=== PATIENT | female | born 1960 | race Caucasian/White ===

== ENCOUNTER → 2017-11-04 | Outpatient (CLI) | payer OTHER ==
--- NOTE | 2017-11-04 17:53 | US ---
EXAMINATION TYPE: US pelvic complete DATE OF EXAM: 11/04/2017 COMPARISON: NONE CLINICAL HISTORY: 57 are old female R10.2 Pelvic And Perineal Pain. Pt states pelvic pain x 2-3 weeks , pt not on HRT's, history of ablation TECHNIQUE: Transabdominal (TA) Date of LMP: 8-10 yrs ago FINDINGS: Uterus: Anteverted measuring 10.4 x 4.4 x 4.9 cm. There are 2 focal fibroids that appear primarily s ubserosal at the uterine fundus measuring 2.6 cm (projecting towards the right and partially exophyti c) and 1.0 cm (projecting anteriorly). Endometrial Stripe: 6.6 mm, slightly prominent given history of previous endometrial ablation. No abn ormal fluid accumulation is seen along the uterine cavity. Right Ovary: 2.4 x 1.8 x 2.8 cm Left Ovary: 2.4 x 1.9 x 2.1 cm No evident adnexal abnormality or cul-de-sac free fluid. IMPRESSION: 1. 2 subserosal fibroids at the uterine fundus, larger measuring 2.6 cm projects towards the right an d is partially exophytic. 2. The endometrial stripe measures 6.6 mm which may be slightly prominent given history of prior endo metrial ablation. Clinically correlate.
== END | disposition home or self-care (01) ==
LOC: RADUSWWP 15:04
PROVIDERS: ATTEND Family Medicine
DX: D25.2 Subserosal leiomyoma of uterus (principal); R10.84 Generalized abdominal pain
CPT/HCPCS: 76856

== ENCOUNTER → 2017-12-17 | Outpatient (CLI) | payer OTHER ==
[2017-12-17 16:05] LABS: Blood Urea Nitrogen 13 mg/dL (7-17)
--- NOTE | 2017-12-17 17:28 | CT ---
EXAMINATION TYPE: CT abdomen pelvis w con DATE OF EXAM: 12/17/2017 COMPARISON: NONE HISTORY: Ventral hernia. CT DLP: 3338.6 mGycm Automated exposure control for dose reduction was used. TECHNIQUE: Helical acquisition of images was performed from the lung bases through the pelvis. CONTRAST: Performed with Oral Contrast and with IV Contrast, patient injected with 100 mL of Isovue M300. FINDINGS: Lung bases are clear of consolidation. There is no pleural effusion. There is no pericardial effusion . There is a bariatric gastric sleeve at the gastric fundus. Liver spleen pancreas appear normal. There are clips from cholecystectomy. Bile ducts are not dilated . There is no adrenal mass. Kidneys show satisfactory contrast opacification. There is no hydronephrosi s. Bladder distends smoothly. There is no evidence of a pelvic mass. I see no intestinal wall thicken ing. There are no dilated loops. There is no ascites. There is no sign of free air. Appendix appears normal. There is a 4 mm calculus in the posterior right kidney. I see no bony destructive process. Uterus is anteverted. There is no sign of a pelvic mass. IMPRESSION: NONOBSTRUCTING SMALL RIGHT RENAL CALCULUS. PREVIOUS BARIATRIC SURGERY. NORMAL APPENDIX. NO EVIDENCE OF A VENTRAL HERNIA. NO SIGN OF AN ACUTE ABDOMEN AND PELVIS.
== END | disposition home or self-care (01) ==
LOC: RADCTMAIN 15:04
PROVIDERS: ATTEND Surgery Plastic and Reconstructive Surgery
DX: N20.0 Calculus of kidney (principal); Z98.84 Bariatric surgery status
CPT/HCPCS: 82565; 84520; 74177; 36415; Q9967

== ENCOUNTER → 2017-12-27 | Outpatient (CLI) | payer OTHER ==
--- NOTE | 2017-12-27 11:34 | XR ---
EXAMINATION TYPE: XR chest 2V DATE OF EXAM: 12/27/2017 COMPARISON: 02/24/2014 TECHNIQUE: PA and lateral views submitted. HISTORY: Cough, bronchitis FINDINGS: The lungs are clear and there is no pneumothorax, pleural effusion, or focal pneumonia. Arthropathy of the AC joints. Hypertrophic and degenerative change of the spine. IMPRESSION: 1. No acute process.
== END | disposition home or self-care (01) ==
LOC: RADXRMAIN 10:58
PROVIDERS: ATTEND Physician Assistant
DX: R05 Cough (principal)
CPT/HCPCS: 71046

== ENCOUNTER 2018-02-14 10:11 | Day surgery (SDC) | payer OTHER ==
[2018-02-12 14:14] VITALS: BMI 49.6
--- NOTE | 2018-02-14 07:08 | P.GSHP ---
History of Present Illness H&P Date: 02/14/18 CHIEF COMPLAINT: GERD HISTORY OF PRESENT ILLNESS: The patient is a 57-year-old female who presents reports gastroesophageal reflux disease. Upper endoscopy was offered for further evaluation and management. PAST MEDICAL HISTORY: Please see list. PAST SURGICAL HISTORY: Please see list. MEDICATIONS: Please see list. ALLERGIES: Please see list. SOCIAL HISTORY: No illicit drug use FAMILY HISTORY: No reports of Crohn disease or ulcerative colitis. REVIEW OF ORGAN SYSTEMS: CONSTITUTIONAL: No reports of fevers or chills. GI: Denies any blood in stools or constipation. PHYSICAL EXAM: VITAL SIGNS: Stable GENERAL: Well-developed and pleasant in no acute distress. HEENT: No scleral icterus. Extraocular movements grossly intact. Moist buccal mucosa. NECK: Supple without lymphadenopathy. CHEST: Unlabored respirations. Equal bilateral excursions. CARDIOVASCULAR: Regular rate and rhythm. Distal 2+ pulses. ABDOMEN: Soft, nondistended. MUSCULOSKELETAL: No clubbing, cyanosis, or edema. ASSESSMENT: 1. Gastroesophageal reflux disease PLAN: 1. Recommend proceeding with an upper endoscopy Past Medical History Past Medical History: Diabetes Mellitus, Hypertension, Pneumonia Additional Past Medical History / Comment(s): bronchitis,steroids December 2017, UTIs,fatty liver History of Any Multi-Drug Resistant Organisms: None Reported Past Surgical History: Bariatric Surgery, Cholecystectomy, Hernia Repair, Uterine Ablation Additional Past Surgical History / Comment(s): lap band,antonio inguinal hernia repair Past Anesthesia/Blood Transfusion Reactions: Previous Problems w/ Anesthesia, Postoperative Nausea & Vomiting (PONV) Additional Past Anesthesia/Blood Transfusion Reaction / Comment(s): hx stomach ache and headaches with anesthesia Smoking Status: Never smoker - Past Family History Mother Family Medical History: No Reported History Medications and Allergies Home Medications Medication Instructions Recorded Confirmed Type ALPRAZolam [Xanax] 0.25 mg PO BID PRN 02/12/18 02/12/18 History Insulin Glargine,Hum.rec.anlog 70 unit SQ HS 02/12/18 02/12/18 History [Basaglar Kwikpen U-100] Insulin Lispro [humaLOG Kwikpen] 35 unit SQ TID-W/MEALS 02/12/18 02/12/18 History Losartan Potassium 50 mg PO QAM 02/12/18 02/12/18 History metFORMIN HCL [metFORMIN HCL ER] 1,000 mg PO BID 02/12/18 02/12/18 History traMADol HCL [Ultram] 50 mg PO Q6HR PRN 02/12/18 02/12/18 History Allergies Allergy/AdvReac Type Severity Reaction Status Date / Time ciprofloxacin [From Cipro] Allergy Rash/Hives Verified 02/12/18 14:03 codeine Allergy throat Verified 02/12/18 14:03 swelling Iodinated Contrast- Oral and Allergy Unknown Verified 02/12/18 14:10 IV Dye latex Allergy Rash/Hives Verified 02/12/18 14:03 Penicillins Allergy Rash/Hives Verified 02/12/18 14:03 pain medications Allergy throat Uncoded 02/12/18 14:03 swelling
[~2018-02-14 10:11] MED LIST: LACTATED RINGERS 1,000 ML IV SCH
[2018-02-14 10:58] VITALS: TEMP 96.7
[2018-02-14] MEDS ORDERED: ONDANSETRON 4 MG/2 ML VIAL IVP ONE (10:59)
[2018-02-14] MEDS ORDERED: LIDOCAINE 1% 20 ML VIAL (10MG/ML) FOR IV START INTRADERMA ONE (10:59)
[2018-02-14] MEDS ORDERED: SCOPOLAMINE 1.5MG/72HR PATCH TRANSDERM ONE (11:00)
[2018-02-14 11:02] LABS: Glucose,Whole Blood 133 mg/dL (75-99)
[2018-02-14] MEDS ORDERED: LIDOCAINE 1% INJ 10MG/ML (20 ML MDV) ONE (12:19)
[2018-02-14] MEDS ORDERED: PROPOFOL 10 MG/ML 20 ML VIAL IV ONE (12:19)
--- NOTE | 2018-02-14 12:37 | P.PCN ---
Date of Procedure: 02/14/18 Description of Procedure: PREOPERATIVE DIAGNOSIS: Gastroesophageal reflux disease. Morbid obesity. POSTOPERATIVE DIAGNOSIS: Morbid obesity. Gastritis. Gastroesophageal reflux disease. Diaphragmatic hiatal hernia without obstruction. OPERATION: Esophagogastroduodenoscopy with biopsies along antrum. SURGEON: Pennie Burton MD ANESTHESIA: MAC. INDICATIONS: The patient is a 57-year-old female who presents with a history of reflux disease. Benefits and risks of the procedure were described. Informed consent was obtained. DESCRIPTION: The patient was brought into the endoscopy suite and laid in the left lateral decubitus position. An Olympus gastroscope was passed along the posterior oropharynx down to the distal esophagus where the squamocolumnar junction was encountered at 39 cm from the incisors. The stomach was entered and no bile reflux was found. Additional findings are listed below. Biopsies with cold forceps were obtained of the antrum. The first through third portion of the duodenum was examined and unremarkable. Retroflexion of the scope confirmed Hill grade 3 lower esophageal valve. The squamocolumnar junction demostrated LA grade A erosive esophagitis. The stomach was desufflated. The patient tolerated the procedure well. FINDINGS: Squamocolumnar junction 39 cm from the incisors. Diaphragmatic hiatus at 40 cm. Hiatal hernia 1 cm. Hill grade 3 lower esophageal valve. LA grade A erosive esophagitis. Chronic gastritis. No active duodenitis. RECOMMENDATIONS: Further recommendations pending results of pathology report. Upper endoscopy as needed. Plan - Discharge Summary New Discharge Prescriptions: No Action Insulin Glargine,Hum.rec.anlog [Basaglar Kwikpen U-100] 70 unit SQ HS metFORMIN HCL [metFORMIN HCL ER] 1,000 mg PO BID ALPRAZolam [Xanax] 0.25 mg PO BID PRN PRN Reason: Pain traMADol HCL [Ultram] 50 mg PO Q6HR PRN PRN Reason: Pain Losartan Potassium 50 mg PO QAM Insulin Lispro [humaLOG Kwikpen] 35 unit SQ TID-W/MEALS Discharge Medication List ALPRAZolam [Xanax] 0.25 mg PO BID PRN 02/12/18 [History] Insulin Glargine,Hum.rec.anlog [Basaglar Kwikpen U-100] 70 unit SQ HS 02/12/18 [ History] Insulin Lispro [humaLOG Kwikpen] 35 unit SQ TID-W/MEALS 02/12/18 [History] Losartan Potassium 50 mg PO QAM 02/12/18 [History] metFORMIN HCL [metFORMIN HCL ER] 1,000 mg PO BID 02/12/18 [History] traMADol HCL [Ultram] 50 mg PO Q6HR PRN 02/12/18 [History]
[2018-02-14 12:54] VITALS: BP 131/75; PULSE 68; RESP 18
== END 2018-02-14 13:12 | disposition home or self-care (01) ==
LOC: ORWHC2ENDO 10:11
PROVIDERS: ATTEND Surgery Plastic and Reconstructive Surgery
DX: K29.50 Unspecified chronic gastritis without bleeding (principal); E11.9 Type 2 diabetes mellitus without complications; I10 Essential (primary) hypertension; K21.9 Gastro-esophageal reflux disease without esophagitis; K44.9 Diaphragmatic hernia without obstruction or gangrene; E66.01 Morbid (severe) obesity due to excess calories; K22.10 Ulcer of esophagus without bleeding; Z87.01 Personal history of pneumonia (recurrent); Z90.49 Acquired absence of other specified parts of digestive tract; Z79.4 Long term (current) use of insulin; Z88.1 Allergy status to other antibiotic agents; Z88.5 Allergy status to narcotic agent; Z91.040 Latex allergy status; Z88.0 Allergy status to penicillin; Z91.041 Radiographic dye allergy status; Z68.42 Body mass index [BMI] 45.0-49.9, adult; Z79.899 Other long term (current) drug therapy; Z79.891 Long term (current) use of opiate analgesic
CPT/HCPCS: 88305; 43239; J2405; J2001; J2704

== ENCOUNTER 2018-05-03 07:24 | Observation (INO) | payer OTHER ==
[2018-05-03] MEDS ORDERED: ONDANSETRON 4 MG/2 ML VIAL IVP STA (07:52)
[2018-05-03] MEDS ORDERED: SODIUM CHLORIDE 0.9% 500 ML IV STA (07:53)
[2018-05-03] MEDS ORDERED: MORPHINE SULFATE 2 MG/ML SYRINGE IVP STA (07:55)
[2018-05-03] MEDS ORDERED: KETOROLAC 60 MG/2 ML VIAL IVP STA (07:56)
[2018-05-03 08:03] LABS: Basophils % (A) 1 %; Eosinophils # (A) 0.1 k/uL (0-0.7); Eosinophils % (A) 2 %; HCT 45.2 % (34.0-46.0); HGB 15.1 gm/dL (11.4-16.0); Lymphocytes # (A) 1.7 k/uL (1.0-4.8); Lymphocytes % (A) 26 %; MCH 26.9 pg (25.0-35.0); MCHC 33.3 g/dL (31.0-37.0); MCV 80.7 fL (80.0-100.0); Mean Platelet Volume 8.3; Monocytes # (A) 0.3 k/uL (0-1.0); Monocytes % (A) 4 %; Neutrophils # (A) 4.4 k/uL (1.3-7.7); Neutrophils % (A) 67 %; Platelet Count 167 k/uL (150-450); RDW 13.5 % (11.5-15.5); WBC 6.6 k/uL (3.8-10.6)
--- NOTE | 2018-05-03 08:05 | ED ---
General Adult HPI - General Chief complaint: Nausea/Vomiting/Diarrhea Stated complaint: vomiting Time Seen by Provider: 05/03/18 07:30 Source: patient, RN notes reviewed Mode of arrival: ambulatory Limitations: no limitations - History of Present Illness Initial comments: This is a 57-year-old female who presents emergency Department complaining of abdominal pain which started at work. Patient states she woke up and felt fine went to work started having some right abdominal pain and then began vomiting. Patient states she continues to be nauseous and continues to have right sided abdominal pain. Patient states the pain is more in the lower right abdomen but it seems to be in the right upper abdomen as well. Patient denies any fever or chills. Patient denies any diarrhea. Patient denies chest pain difficulty breathing or shortness of breath. Patient states she is a diabetic. Patient denies any lightheadedness or dizziness. Patient denies any numbness or weakness. Patient denies any recent injury or trauma - Related Data Home Medications Medication Instructions Recorded Confirmed ALPRAZolam [Xanax] 0.25 mg PO BID PRN 02/12/18 02/14/18 Insulin Glargine,Hum.rec.anlog 70 unit SQ HS 02/12/18 02/14/18 [Basaglar Kwikpen U-100] Insulin Lispro [humaLOG Kwikpen] 35 unit SQ TID-W/MEALS 02/12/18 02/14/18 Losartan Potassium 50 mg PO QAM 02/12/18 02/14/18 metFORMIN HCL [metFORMIN HCL ER] 1,000 mg PO BID 02/12/18 02/14/18 traMADol HCL [Ultram] 50 mg PO Q6HR PRN 02/12/18 02/14/18 Previous Rx's Medication Instructions Recorded Omeprazole 40 mg PO DAILY #14 capsule. 02/14/18 Allergies Allergy/AdvReac Type Severity Reaction Status Date / Time ciprofloxacin [From Cipro] Allergy Rash/Hives Verified 05/03/18 07:30 codeine Allergy throat Verified 05/03/18 07:30 swelling Iodinated Contrast- Oral and Allergy Unknown Verified 05/03/18 07:30 IV Dye latex Allergy Rash/Hives Verified 05/03/18 07:30 Penicillins Allergy Rash/Hives Verified 05/03/18 07:30 pain medications Allergy throat Uncoded 05/03/18 07:30 swelling Review of Systems ROS Statement: Those systems with pertinent positive or pertinent negative responses have been documented in the HPI. ROS Other: All systems not noted in ROS Statement are negative. Past Medical History Past Medical History: Diabetes Mellitus, Hypertension, Pneumonia Additional Past Medical History / Comment(s): bronchitis,steroids December 2017, UTIs,fatty liver History of Any Multi-Drug Resistant Organisms: None Reported Past Surgical History: Bariatric Surgery, Cholecystectomy, Hernia Repair, Uterine Ablation Additional Past Surgical History / Comment(s): lap band,antonio inguinal hernia repair Past Anesthesia/Blood Transfusion Reactions: Previous Problems w/ Anesthesia, Postoperative Nausea & Vomiting (PONV) Additional Past Anesthesia/Blood Transfusion Reaction / Comment(s): hx stomach ache and headaches with anesthesia Past Psychological History: Anxiety, Depression Smoking Status: Never smoker Past Alcohol Use History: None Reported Past Drug Use History: None Reported - Past Family History Mother Family Medical History: No Reported History General Exam - General Exam Comments Initial Comments: GENERAL: Patient is well-developed and well-nourished. Patient is nontoxic and well- hydrated and is in mild distress. ENT: Neck is soft and supple. No significant lymphadenopathy is noted. Oropharynx is clear. Moist mucous membranes. Neck has full range of motion without eliciting any pain. EYES: The sclera were anicteric and conjunctiva were pink and moist. Extraocular movements were intact and pupils were equal round and reactive to light. Eyelids were unremarkable. PULMONARY: Unlabored respirations. Good breath sounds bilaterally. No audible rales rhonchi or wheezing was noted. CARDIOVASCULAR: There is a regular rate and rhythm without any murmurs gallops or rubs. ABDOMEN: Patient has tenderness right upper and right lower quadrant. No rebound or guarding SKIN: Skin is clear with no lesions or rashes and otherwise unremarkable. NEUROLOGIC: Patient is alert and oriented x3. Cranial nerves II through XII are grossly intact. Motor and sensory are also intact. Normal speech, volume and content. Symmetrical smile. MUSCULOSKELETAL: Normal extremities with adequate strength and full range of motion. No lower extremity swelling or edema. No calf tenderness. LYMPHATICS: No significant lymphadenopathy is noted PSYCHIATRIC: Normal psychiatric evaluation. Limitations: no limitations Course Vital Signs 05/03/18 07:28 Temperature 97.7 F Pulse Rate 99 Respiratory 20 Rate Blood Pressure 175/103 O2 Sat by Pulse 99 Oximetry Medical Decision Making - Medical Decision Making I went back into reevaluate the patient and gave the patient her results of labs and CAT scan. 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 Patient did not feel comfortable: Home and she was requesting to stay and see Dr. Dale. I spoke with Dr. Barcenas he agreed to admit the patient admitted the patient I wrote admitting orders. - Lab Data Result diagrams: 05/03/18 07:45 05/03/18 07:45 Lab Results 05/03/18 05/03/18 05/03/18 Range/Units 07:45 07:45 07:55 WBC 6.6 (3.8-10.6) k/uL RBC 5.60 H (3.80-5.40) m/uL Hgb 15.1 (11.4-16.0) gm/dL Hct 45.2 (34.0-46.0) % MCV 80.7 (80.0-100.0) fL MCH 26.9 (25.0-35.0) pg MCHC 33.3 (31.0-37.0) g/dL RDW 13.5 (11.5-15.5) % Plt Count 167 (150-450) k/uL Neutrophils % 67 % Lymphocytes % 26 % Monocytes % 4 % Eosinophils % 2 % Basophils % 1 % Neutrophils # 4.4 (1.3-7.7) k/uL Lymphocytes # 1.7 (1.0-4.8) k/uL Monocytes # 0.3 (0-1.0) k/uL Eosinophils # 0.1 (0-0.7) k/uL Basophils # 0.0 (0-0.2) k/uL Sodium 140 (137-145) mmol/L Potassium 4.1 (3.5-5.1) mmol/L Chloride 103 (98-107) mmol/L Carbon Dioxide 29 (22-30) mmol/L Anion Gap 8 mmol/L BUN 14 (7-17) mg/dL Creatinine 0.73 (0.52-1.04) mg/dL Est GFR (CKD-EPI)AfAm >90 (>60 ml/min/1.73 sqM) Est GFR (CKD-EPI)NonAf >90 (>60 ml/min/1.73 sqM) Glucose 126 H (74-99) mg/dL Calcium 9.4 (8.4-10.2) mg/dL Total Bilirubin 0.3 (0.2-1.3) mg/dL AST 30 (14-36) U/L ALT 41 (9-52) U/L Alkaline Phosphatase 135 H (38-126) U/L Total Protein 7.1 (6.3-8.2) g/dL Albumin 4.1 (3.5-5.0) g/dL Amylase 54 (30-110) U/L Lipase 318 H (23-300) U/L Urine Color Yellow Urine Appearance Cloudy H (Clear) Urine pH 5.0 (5.0-8.0) Ur Specific [place] 1.026 (1.001-1.035) Urine Protein 1+ H (Negative) Urine Glucose (UA) Negative (Negative) Urine Ketones Negative (Negative) Urine Blood Negative (Negative) Urine Nitrite Negative (Negative) Urine Bilirubin Negative (Negative) Urine Urobilinogen <2.0 (<2.0) mg/dL Ur Leukocyte Esterase Negative (Negative) Urine RBC 1 (0-5) /hpf Urine WBC 4 (0-5) /hpf Ur Squamous Epith Cells 6 H (0-4) /hpf Urine Bacteria Rare H (None) /hpf Urine Mucus Few H (None) /hpf Disposition Clinical Impression: Abdominal pain, Acute vomiting Disposition: ADMITTED IP TO THIS HOSP Referrals: Kenny Coronado MD [Primary Care Provider] - 1-2 days Time of Disposition: 09:07
[2018-05-03 08:15] LABS: ALT 41 U/L (9-52); AST 30 U/L (14-36); Albumin 4.1 g/dL (3.5-5.0); Alkaline Phosphatase 135 U/L (38-126); Amylase 54 U/L (30-110); Anion Gap 8 mmol/L; Blood Urea Nitrogen 14 mg/dL (7-17); Calcium 9.4 mg/dL (8.4-10.2); Carbon Dioxide 29 mmol/L (22-30); Chloride 103 mmol/L (98-107); Glucose 126 mg/dL (74-99); Lipase 318 U/L (23-300); Potassium 4.1 mmol/L (3.5-5.1); Sodium 140 mmol/L (137-145); Total Bilirubin 0.3 mg/dL (0.2-1.3); Total Protein 7.1 g/dL (6.3-8.2)
[2018-05-03 08:17] LABS: Appearance,Urine Cloudy (Clear); Bacteria,Urine Rare /hpf; Bilirubin,Urine Negative (Negative); Blood,Urine Negative (Negative); Color,Urine Yellow; Glucose,Urine (UA) Negative (Negative); Ketones,Urine Negative (Negative); Leukocyte Esterase,Urine Negative (Negative); Mucus,Urine Few /hpf; Nitrite,Urine Negative (Negative); Protein,Urine 1+ (Negative); RBC,Urine 1 /hpf (0-5); Specific Gravity,Urine 1.026 (1.001-1.035); Squamous Epithelial Cell,Urine 6 /hpf (0-4); Urobilinogen,Urine <2.0 mg/dL (<2.0); WBC,Urine 4 /hpf (0-5)
--- NOTE | 2018-05-03 08:56 | CT ---
EXAMINATION TYPE: CT abdomen pelvis wo con DATE OF EXAM: 05/03/2018 COMPARISON: Previous study dated 12/17/2017. HISTORY: RLQ pain, nausea and vomiting CT DLP: 1315.4 mGycm Automated exposure control for dose reduction was used. FINDINGS: Visualized portions of the lungs are clear. There is no pleural or pericardial fluid. The h eart is not enlarged. Within the abdomen, there is a lap band in place. The gallbladder is been removed. The liver is mildly prominent measuring 18 cm. The spleen is unremar kable. Both adrenal glands are normal. There is a 5 mm calculus in one of the lower pole calyces of the right kidney. Left kidney is unremar kable. Limited views of the pancreas are unremarkable. There is no significant retroperitoneal, iliac or inguinal adenopathy. The uterus and ovaries are unremarkable. The bladder is not distended. There is no significant diverticular change and there is no radiographic evidence of diverticulitis. The appendix is unremarkable. Small bowel loops are normal in caliber. There is no free fluid and no free air identified. There is hypertrophic spondylosis and facet arthropathy within the lumbar spine. IMPRESSION: 1. NONOBSTRUCTING CALCULUS IN THE LOWER POLE OF THE RIGHT KIDNEY. 2. NO ACUTE INFLAMMATORY ABNORMALITY. 3. NORMAL APPENDIX. 4. POSTOPERATIVE CHANGE. 5. DEGENERATIVE CHANGE WITHIN THE SPINE.
[2018-05-03] MEDS ORDERED: SODIUM CHLORIDE 0.9% 1,000 ML IV ONE (09:07)
[2018-05-03] MEDS ORDERED: hydrALAZINE HCL 20 MG/ML 1 ML VIAL IVP STA (09:27)
[2018-05-03] MEDS ORDERED: LORazepam 2 MG/ML INJ IV STA (09:29)
[2018-05-03 11:52] LABS: Glucose,Whole Blood 67 mg/dL (75-99)
[2018-05-03] MEDS ORDERED: DEXTROSE 50%-WATER 50 ML SYRINGE IVP ONE (11:53)
[2018-05-03 12:07] LABS: Glucose,Whole Blood 200 mg/dL (75-99)
[2018-05-03] MEDS: INSULIN ASPART 100 UNIT/ML 1 ML 10 ML VIAL SQ SCH ×3 (12:44→21:08)
[2018-05-03 13:36] VITALS: BMI 49.6
[2018-05-03] MEDS: ONDANSETRON 4 MG/2 ML VIAL IVP PRN ×2 (14:49→20:23)
--- NOTE | 2018-05-03 14:50 | P.HPIM ---
History of Present Illness H&P Date: 05/03/18 Chief Complaint: Intractable abdominal pain This is a 57-year-old female who presents emergency Department complaining of abdominal pain which started at work. Patient states she woke up and felt fine went to work started having some right abdominal pain and then began vomiting. Patient states she continues to be nauseous and continues to have right sided abdominal pain. Patient states the pain is more in the lower right abdomen but it seems to be in the right upper abdomen as well. Patient denies any fever or chills. Patient denies any diarrhea. Patient denies chest pain difficulty breathing or shortness of breath. Patient states she is a diabetic. Patient denies any lightheadedness or dizziness. Patient denies any numbness or weakness. Patient denies any recent injury or trauma Patient had CT of her abdomen done in ED which did not demonstrate etiology of abdominal pain; patient continued to have intractable pain with nausea and vomiting; she is admitted for surgical evaluation and further testing Review of Systems Constitutional: Reports anorexia, Denies chills, Denies fever Eyes: denies as per HPI Ears, nose, mouth and throat: Denies headache Cardiovascular: Denies chest pain, Denies dyspnea on exertion Respiratory: Reports cough, Denies cough with sputum Gastrointestinal: Reports abdominal pain, Reports diarrhea, Reports nausea, Reports vomiting Genitourinary: Denies dysuria, Denies hematuria Neurological: Denies confusion, Denies headaches Endocrine: Denies excessive sweating, Denies flushing, Denies heat intolerance Hematologic/Lymphatic: Denies easy bleeding, Denies easy bruising, Denies lymphadenopathy Past Medical History Past Medical History: Diabetes Mellitus, Hypertension, Pneumonia Additional Past Medical History / Comment(s): bronchitis,steroids December 2017, UTIs,fatty liver History of Any Multi-Drug Resistant Organisms: None Reported Past Surgical History: Bariatric Surgery, Cholecystectomy, Hernia Repair, Uterine Ablation Additional Past Surgical History / Comment(s): lap band,antonio inguinal hernia repair Past Anesthesia/Blood Transfusion Reactions: Previous Problems w/ Anesthesia, Postoperative Nausea & Vomiting (PONV) Additional Past Anesthesia/Blood Transfusion Reaction / Comment(s): hx stomach ache and headaches with anesthesia Past Psychological History: Anxiety, Depression Smoking Status: Never smoker Past Alcohol Use History: None Reported Past Drug Use History: None Reported - Past Family History Mother Family Medical History: No Reported History Medications and Allergies Home Medications Medication Instructions Recorded Confirmed Type Insulin Glargine,Hum.rec.anlog 70 unit SQ HS 02/12/18 05/03/18 History [Basaglar Kwikpen U-100] Insulin Lispro [humaLOG Kwikpen] 35 unit SQ TID-W/MEALS 02/12/18 05/03/18 History Losartan Potassium 50 mg PO QAM 02/12/18 05/03/18 History metFORMIN HCL [metFORMIN HCL ER] 1,000 mg PO BID 02/12/18 05/03/18 History Dulaglutide [Trulicity] 0.75 mg SQ SA 05/03/18 05/03/18 History Allergies Allergy/AdvReac Type Severity Reaction Status Date / Time ciprofloxacin [From Cipro] Allergy Rash/Hives Verified 05/03/18 10:30 codeine Allergy throat Verified 05/03/18 10:30 swelling Iodinated Contrast- Oral and Allergy Unknown Verified 05/03/18 10:30 IV Dye latex Allergy Rash/Hives Verified 05/03/18 10:30 Penicillins Allergy Rash/Hives Verified 05/03/18 10:30 pain medications Allergy throat Uncoded 05/03/18 07:30 swelling Physical Exam Vitals: Vital Signs Temp Pulse Resp BP Pulse Ox 05/03/18 10:10 72 16 139/69 96 05/03/18 09:26 98 16 200/92 05/03/18 07:28 97.7 F 99 20 175/103 99 Intake and Output 05/02/18 05/03/18 05/03/18 22:59 06:59 14:59 Other: Weight 117.934 kg - Constitutional General appearance: Present: average body habitus, cooperative, no acute distress - EENT Eyes: Present: anicteric sclerae, EOMI, PERRLA, normal appearance ENT: Present: hearing grossly normal, normal oropharynx Ears: bilateral: normal - Neck Neck: Present: normal ROM. Absent: lymphadenopathy, rigidity, thyromegaly Carotids: negative: bruit present Thyroid: bilateral: normal size, negative: enlarged, nodule - Respiratory Respiratory: bilateral: CTA, negative: rales, rhonchi, wheezing - Cardiovascular Rhythm: regular Heart sounds: normal: S1, S2 Abnormal Heart Sounds: Absent: systolic murmur, diastolic murmur - Gastrointestinal General gastrointestinal: Present right upper and lower quadrant tenderness; no guarding or rigidity - Genitourinary Genitourinary Comment(s): deferred - Integumentary Integumentary: Present: normal turgor. Absent: jaundiced, rash, ulcer - Neurologic Neurologic: Present: CNII-XII intact. Absent: focal deficits - Musculoskeletal Musculoskeletal: Present: gait normal, strength equal bilaterally - Psychiatric Psychiatric: Present: A&O x's 3, appropriate affect, intact judgment & insight Results CBC & Chem 7: 05/03/18 07:45 05/03/18 07:45 Labs: Abnormal Lab Results - Last 24 Hours (Table) 05/03/18 05/03/18 05/03/18 Range/Units 07:45 07:45 07:55 RBC 5.60 H (3.80-5.40) m/uL Glucose 126 H (74-99) mg/dL Alkaline Phosphatase 135 H (38-126) U/L Lipase 318 H (23-300) U/L Urine Appearance Cloudy H (Clear) Urine Protein 1+ H (Negative) Ur Squamous Epith Cells 6 H (0-4) /hpf Urine Bacteria Rare H (None) /hpf Urine Mucus Few H (None) /hpf Assessment and Plan Assessment: 1. Intractable nausea and vomiting - Possible gastroenteritis; we will add Protonix 40 mg IV daily - Symptomatic treatment with Zofran 4 mg IV every 6 hours when necessary 2. Intractable abdominal pain rule out acute abdomen - Patient remains nothing by mouth and is admitted for surgical evaluation and further recommendations - Pain controlled with IV morphine 4 mg every 4 hours when necessary 3. Uncontrolled hypertension - We will restart patient on home dose of losartan 50 mg daily and monitor blood pressure closely -We will add IV hydralazine when necessary for systolic blood pressure greater than 160 if blood pressure remains elevated despite using home medications 4. Diabetes mellitus type 1 - We will monitor Accu-Cheks with insulin sliding scale closely 5. Hypertension; as above DVT prophylaxis; SCDs CODE STATUS; full code Time with Patient: Less than 30
[2018-05-03] MEDS ORDERED: MORPHINE SULFATE/PF 10MG/10ML VL IVP PRN (14:51)
[2018-05-03] MEDS: KETOROLAC 30 MG/ML 1 ML VIAL IVP PRN ×2 (15:26→20:23)
[2018-05-03 17:12] LABS: Glucose,Whole Blood 78 mg/dL (75-99)
[2018-05-03] MEDS ORDERED: KETOROLAC 30 MG/ML 1 ML VIAL IM SCH (18:00)
[2018-05-03 19:21] LABS: Hemoglobin A1C 7.8 % (4.0-6.0)
[2018-05-03 20:57] LABS: Glucose,Whole Blood 76 mg/dL (75-99)
[2018-05-04] MEDS: KETOROLAC 30 MG/ML 1 ML VIAL IVP PRN ×4 (02:31→20:19)
[2018-05-04 02:33] LABS: Glucose,Whole Blood 73 mg/dL (75-99)
[2018-05-04] MEDS: ONDANSETRON 4 MG/2 ML VIAL IVP PRN ×4 (02:35→20:19)
[2018-05-04 07:08] LABS: Glucose,Whole Blood 88 mg/dL (75-99)
[2018-05-04] MEDS: INSULIN ASPART 100 UNIT/ML 1 ML 10 ML VIAL SQ SCH ×4 (08:15→21:54)
[2018-05-04] MEDS: LOSARTAN 50 MG TAB PO SCH (08:26)
[2018-05-04] MEDS: PANTOPRAZOLE 40 MG/10 ML VIAL IVP SCH (08:26)
[2018-05-04 08:51] LABS: Basophils % (A) 1 %; Eosinophils # (A) 0.2 k/uL (0-0.7); Eosinophils % (A) 3 %; HCT 40.8 % (34.0-46.0); HGB 13.7 gm/dL (11.4-16.0); Lymphocytes # (A) 1.6 k/uL (1.0-4.8); Lymphocytes % (A) 33 %; MCH 27.1 pg (25.0-35.0); MCHC 33.5 g/dL (31.0-37.0); MCV 80.8 fL (80.0-100.0); Mean Platelet Volume 8.1; Monocytes # (A) 0.2 k/uL (0-1.0); Monocytes % (A) 4 %; Neutrophils # (A) 2.8 k/uL (1.3-7.7); Neutrophils % (A) 58 %; Platelet Count 131 k/uL (150-450); RBC 5.05 m/uL (3.80-5.40); RDW 13.4 % (11.5-15.5); WBC 4.9 k/uL (3.8-10.6)
[2018-05-04 09:33] LABS: Anion Gap 6 mmol/L; Blood Urea Nitrogen 12 mg/dL (7-17); Calcium 8.8 mg/dL (8.4-10.2); Carbon Dioxide 26 mmol/L (22-30); Chloride 106 mmol/L (98-107); Glucose 125 mg/dL (74-99); Potassium 4.1 mmol/L (3.5-5.1); Sodium 138 mmol/L (137-145)
--- NOTE | 2018-05-04 10:32 | P.GSCN ---
History of Present Illness Consult date: 05/04/18 Reason for Consult: Abdominal pain, nausea History of present illness: This is a 57-year-old female who was admitted to the hospital with abdominal pain nausea. Patient states that she developed some severe right-sided abdominal pain and nausea. She will hospital for observation. She currently is starving and requesting something to eat.. Patient is obese with BMI 50. Past Medical History Past Medical History: Diabetes Mellitus, Hypertension, Pneumonia Additional Past Medical History / Comment(s): bronchitis,steroids December 2017, UTIs,fatty liver History of Any Multi-Drug Resistant Organisms: None Reported Past Surgical History: Bariatric Surgery, Cholecystectomy, Hernia Repair, Uterine Ablation Additional Past Surgical History / Comment(s): lap band,antonio inguinal hernia repair Past Anesthesia/Blood Transfusion Reactions: Previous Problems w/ Anesthesia, Postoperative Nausea & Vomiting (PONV) Additional Past Anesthesia/Blood Transfusion Reaction / Comm: hx stomach ache and headaches with anesthesia Past Psychological History: Anxiety, Depression Smoking Status: Never smoker Past Alcohol Use History: None Reported Past Drug Use History: None Reported - Past Family History Mother Family Medical History: No Reported History Medications and Allergies Home Medications Medication Instructions Recorded Confirmed Type Insulin Glargine,Hum.rec.anlog 70 unit SQ HS 02/12/18 05/03/18 History [Basaglar Kwikpen U-100] Insulin Lispro [humaLOG Kwikpen] 35 unit SQ TID-W/MEALS 02/12/18 05/03/18 History Losartan Potassium 50 mg PO QAM 02/12/18 05/03/18 History metFORMIN HCL [metFORMIN HCL ER] 1,000 mg PO BID 02/12/18 05/03/18 History Dulaglutide [Trulicity] 0.75 mg SQ SA 05/03/18 05/03/18 History Allergies Allergy/AdvReac Type Severity Reaction Status Date / Time ciprofloxacin [From Cipro] Allergy Rash/Hives Verified 05/03/18 10:30 codeine Allergy throat Verified 05/03/18 10:30 swelling Iodinated Contrast- Oral and Allergy Unknown Verified 05/03/18 10:30 IV Dye latex Allergy Rash/Hives Verified 05/03/18 10:30 Penicillins Allergy Rash/Hives Verified 05/03/18 10:30 pain medications Allergy throat Uncoded 05/03/18 07:30 swelling Surgical - Exam Vital Signs Temp Pulse Resp BP Pulse Ox 97.7 F 99 20 175/103 99 05/03/18 07:28 05/03/18 07:28 05/03/18 07:28 05/03/18 07:28 05/03/18 07:28 - General well developed, no distress - Eyes PERRL - ENT normal pinna - Neck no masses - Respiratory normal expansion - Cardiovascular Rhythm: regular - Abdomen Minimal tenderness. There is no rebound or guarding. Abdomen: soft Results - Labs 05/04/18 08:15 05/04/18 08:15 Abnormal Lab Results - Last 24 Hours (Table) 05/03/18 05/03/18 05/03/18 Range/Units 07:45 11:48 12:04 Plt Count (150-450) k/uL Glucose (74-99) mg/dL POC Glucose (mg/dL) 67 L 200 H (75-99) mg/dL Hemoglobin A1c 7.8 H (4.0-6.0) % 05/04/18 05/04/18 05/04/18 Range/Units 02:32 08:15 08:15 Plt Count 131 L (150-450) k/uL Glucose 125 H (74-99) mg/dL POC Glucose (mg/dL) 73 L (75-99) mg/dL Hemoglobin A1c (4.0-6.0) % Diabetes panel 05/03/18 05/04/18 Range/Units 07:45 08:15 Sodium 138 (137-145) mmol/L Potassium 4.1 (3.5-5.1) mmol/L Chloride 106 (98-107) mmol/L Carbon Dioxide 26 (22-30) mmol/L BUN 12 (7-17) mg/dL Creatinine 0.60 (0.52-1.04) mg/dL Glucose 125 H (74-99) mg/dL Hemoglobin A1c 7.8 H (4.0-6.0) % Calcium 8.8 (8.4-10.2) mg/dL Calcium panel 05/04/18 Range/Units 08:15 Calcium 8.8 (8.4-10.2) mg/dL Pituitary panel 05/04/18 Range/Units 08:15 Sodium 138 (137-145) mmol/L Potassium 4.1 (3.5-5.1) mmol/L Chloride 106 (98-107) mmol/L Carbon Dioxide 26 (22-30) mmol/L BUN 12 (7-17) mg/dL Creatinine 0.60 (0.52-1.04) mg/dL Glucose 125 H (74-99) mg/dL Calcium 8.8 (8.4-10.2) mg/dL Adrenal panel 05/04/18 Range/Units 08:15 Sodium 138 (137-145) mmol/L Potassium 4.1 (3.5-5.1) mmol/L Chloride 106 (98-107) mmol/L Carbon Dioxide 26 (22-30) mmol/L BUN 12 (7-17) mg/dL Creatinine 0.60 (0.52-1.04) mg/dL Glucose 125 H (74-99) mg/dL Calcium 8.8 (8.4-10.2) mg/dL - Imaging CT scan - pelvis: report reviewed (Computed tomography scan of the abdomen is reviewed. There is a nonobstructing right lower pole nephrolithiasis. There is no bowel obstruction. There is no evidence of any acute inflammatory changes.) Assessment and Plan Assessment: Probable gastroenteritis. Patient will start on full liquid diet. She'll be most likely discharged home tomorrow.
[2018-05-04 12:14] LABS: Glucose,Whole Blood 100 mg/dL (75-99)
--- NOTE | 2018-05-04 14:06 | P.PN ---
Subjective Progress Note Date: 05/04/18 Principal diagnosis: Abdominal pain This is a 57-year-old female who presents emergency Department complaining of abdominal pain which started at work. Patient states she woke up and felt fine went to work started having some right abdominal pain and then began vomiting. Patient states she continues to be nauseous and continues to have right sided abdominal pain. Patient states the pain is more in the lower right abdomen but it seems to be in the right upper abdomen as well. Patient denies any fever or chills. Patient denies any diarrhea. Patient denies chest pain difficulty breathing or shortness of breath. Patient states she is a diabetic. Patient denies any lightheadedness or dizziness. Patient denies any numbness or weakness. Patient denies any recent injury or trauma Patient had CT of her abdomen done in ED which did not demonstrate etiology of abdominal pain; patient continued to have intractable pain with nausea and vomiting; she is admitted for surgical evaluation and further testing 05/04/18 Patient continues to complain of abdominal pain; claims it slightly improved compared to yesterday; denies any nausea vomiting or diarrhea; surgical service has evaluated patient and recommending conservative treatment for probable gastroenteritis; she does started on full liquid diet and will be advanced as tolerated; patient's vital signs and labs remained stable Possible discharge in next 24 hours if remains stable Objective - Vital Signs Vital signs: Vital Signs Temp 97.7 F 05/04/18 08:00 Pulse 94 05/04/18 12:00 Resp 16 05/04/18 12:00 BP 157/94 05/04/18 08:00 Pulse Ox 94 L 05/04/18 08:00 Intake & Output 05/03/18 05/04/18 05/04/18 18:59 06:59 18:59 Intake Total 360 Balance 360 Weight 119.1 kg Intake: Oral 360 Other: Voiding Method Toilet Toilet Toilet # Voids 2 - Exam - Constitutional General appearance: Present: average body habitus, cooperative, no acute distress - EENT Eyes: Present: anicteric sclerae, EOMI, PERRLA, normal appearance ENT: Present: hearing grossly normal, normal oropharynx Ears: bilateral: normal - Neck Neck: Present: normal ROM. Absent: lymphadenopathy, rigidity, thyromegaly Carotids: negative: bruit present Thyroid: bilateral: normal size, negative: enlarged, nodule - Respiratory Respiratory: bilateral: CTA, negative: rales, rhonchi, wheezing - Cardiovascular Rhythm: regular Heart sounds: normal: S1, S2 Abnormal Heart Sounds: Absent: systolic murmur, diastolic murmur - Gastrointestinal General gastrointestinal: Present: normal bowel sounds, soft. Absent: distended , organomegaly, tenderness - Genitourinary Genitourinary Comment(s): deferred - Integumentary Integumentary: Present: normal turgor. Absent: jaundiced, rash, ulcer - Neurologic Neurologic: Present: CNII-XII intact. Absent: focal deficits - Musculoskeletal Musculoskeletal: Present: gait normal, strength equal bilaterally - Psychiatric Psychiatric: Present: A&O x's 3, appropriate affect, intact judgment & insight - Labs CBC & Chem 7: 05/04/18 08:15 05/04/18 08:15 Labs: Abnormal Lab Results - Last 24 Hours (Table) 05/03/18 05/04/18 05/04/18 Range/Units 07:45 02:32 08:15 Plt Count 131 L (150-450) k/uL Glucose (74-99) mg/dL POC Glucose (mg/dL) 73 L (75-99) mg/dL Hemoglobin A1c 7.8 H (4.0-6.0) % 05/04/18 05/04/18 Range/Units 08:15 12:11 Plt Count (150-450) k/uL Glucose 125 H (74-99) mg/dL POC Glucose (mg/dL) 100 H (75-99) mg/dL Hemoglobin A1c (4.0-6.0) % Assessment and Plan Assessment: 1. Intractable nausea and vomiting - Possible gastroenteritis; we will add Protonix 40 mg IV daily - Symptomatic treatment with Zofran 4 mg IV every 6 hours when necessary 2. Intractable abdominal pain rule out acute abdomen - Patient remains nothing by mouth and is admitted for surgical evaluation and further recommendations - Pain controlled with IV morphine 4 mg every 4 hours when necessary 3. Uncontrolled hypertension - We will restart patient on home dose of losartan 50 mg daily and monitor blood pressure closely -We will add IV hydralazine when necessary for systolic blood pressure greater than 160 if blood pressure remains elevated despite using home medications 4. Diabetes mellitus type 1 - We will monitor Accu-Cheks with insulin sliding scale closely 5. Hypertension; as above DVT prophylaxis; SCDs CODE STATUS; full code Time with Patient: Less than 30
[2018-05-04 16:57] LABS: Glucose,Whole Blood 125 mg/dL (75-99)
[2018-05-04 21:17] LABS: Glucose,Whole Blood 140 mg/dL (75-99)
[2018-05-05] MEDS: ONDANSETRON 4 MG/2 ML VIAL IVP PRN ×4 (01:31→20:05)
[2018-05-05] MEDS: KETOROLAC 30 MG/ML 1 ML VIAL IVP PRN ×4 (01:31→20:06)
[2018-05-05 03:12] LABS: Glucose,Whole Blood 113 mg/dL (75-99)
[2018-05-05 07:04] LABS: Glucose,Whole Blood 115 mg/dL (75-99)
[2018-05-05] MEDS: INSULIN ASPART 100 UNIT/ML 1 ML 10 ML VIAL SQ SCH ×4 (08:27→22:07)
[2018-05-05] MEDS: LOSARTAN 50 MG TAB PO SCH (08:31)
[2018-05-05] MEDS: PANTOPRAZOLE 40 MG/10 ML VIAL IVP SCH (08:32)
[2018-05-05 12:15] LABS: Glucose,Whole Blood 150 mg/dL (75-99)
[2018-05-05] MEDS: SODIUM CHLORIDE 0.9% 1,000 ML IV SCH (15:53)
[2018-05-05 17:54] LABS: Glucose,Whole Blood 110 mg/dL (75-99)
[2018-05-05 20:30] LABS: Glucose,Whole Blood 119 mg/dL (75-99)
--- NOTE | 2018-05-06 00:23 | P.PN ---
Subjective Progress Note Date: 05/05/18 Principal diagnosis: Nausea vomiting and abdominal pain. Possible gastroenteritis This is a 57-year-old female who presents emergency Department complaining of abdominal pain which started at work. Patient states she woke up and felt fine went to work started having some right abdominal pain and then began vomiting. Patient states she continues to be nauseous and continues to have right sided abdominal pain. Patient states the pain is more in the lower right abdomen but it seems to be in the right upper abdomen as well. Patient denies any fever or chills. Patient denies any diarrhea. Patient denies chest pain difficulty breathing or shortness of breath. Patient states she is a diabetic. Patient denies any lightheadedness or dizziness. Patient denies any numbness or weakness. Patient denies any recent injury or trauma Patient had CT of her abdomen done in ED which did not demonstrate etiology of abdominal pain; patient continued to have intractable pain with nausea and vomiting; she is admitted for surgical evaluation and further testing 05/04/18 Patient continues to complain of abdominal pain; claims it slightly improved compared to yesterday; denies any nausea vomiting or diarrhea; surgical service has evaluated patient and recommending conservative treatment for probable gastroenteritis; she does started on full liquid diet and will be advanced as tolerated; patient's vital signs and labs remained stable 05/05/2018 Patient says that she still having nausea and vomiting. Abdominal pain is slightly better. Denied any diarrhea. Patient was started on clear liquid diet and advance as tolerated. Continue with symptomatic management as per general surgery. Patient did not have any bowel movement for the past 3 days. Patient will be continued on insulin sliding scale. Blood sugar is fairly controlled otherwise. No complaints of chest pain or shortness of breath. Possible discharge in next 24 hours if remains stable. Current medications reviewed. Objective - Vital Signs Vital signs: Vital Signs Temp 97.6 F 05/06/18 00:00 Pulse 81 05/06/18 00:00 Resp 18 05/06/18 00:00 BP 140/69 05/06/18 00:00 Pulse Ox 95 05/06/18 00:00 Intake & Output 05/05/18 05/05/18 05/06/18 06:59 18:59 06:59 Intake Total 1218 300 Balance 1218 300 Intake: Oral 1218 300 Other: Voiding Method Toilet Toilet Toilet # Voids 3 1 - Exam PHYSICAL EXAMINATION: Patient is lying in the bed comfortably, no acute distress, awake alert and oriented.. HEENT: Normocephalic. Neck is supple. Pupils reactive. Nostrils clear. Oral cavity is moist. Ears reveal no drainage. Neck reveals no JVD, carotid bruits, or thyromegaly. CHEST EXAMINATION: Trachea is central. Symmetrical expansion. Lung shen clear to auscultation and percussion. CARDIAC: Normal S1, S2 with no gallops. No murmurs ABDOMEN: Soft. Mild lower abdominal tenderness. Bowel sounds normal. No organomegaly. No abdominal bruits. Extremities: reveal no edema. No clubbing or cyanosis Neurologically awake, alert, oriented x3 with well-coordinated movements. No focal deficits noted Skin: No rash or skin lesions. Psychiatric: Coperative. Nonsuicidal Musculoskeletal: No joint swelling or deformity. Normal range of motion. - Labs CBC & Chem 7: 05/04/18 08:15 05/04/18 08:15 Labs: Abnormal Lab Results - Last 24 Hours (Table) 05/05/18 05/05/18 05/05/18 Range/Units 03:10 06:56 12:04 POC Glucose (mg/dL) 113 H 115 H 150 H (75-99) mg/dL 05/05/18 05/05/18 Range/Units 17:24 20:26 POC Glucose (mg/dL) 110 H 119 H (75-99) mg/dL Assessment and Plan Assessment: 1. Intractable nausea and vomiting - Possible mastitis/ gastroenteritis; added Protonix 40 mg IV daily - Symptomatic treatment with Zofran 4 mg IV every 6 hours when necessary - Added stool softeners for constipation. 2. Intractable abdominal pain ruled out acute abdomen - Patient remains nothing by mouth and is admitted for surgical evaluation and further recommendations - CT of the abdomen showed no acute medical process. Nonobstructive calculus in the lower pole of right kidney. - Pain controlled with IV morphine 4 mg every 4 hours when necessary 3. Uncontrolled hypertension - We will restart patient on home dose of losartan 50 mg daily and monitor blood pressure closely -We will add IV hydralazine when necessary for systolic blood pressure greater than 160 if blood pressure remains elevated despite using home medications 4. Diabetes mellitus type 1 - We will monitor Accu-Cheks with insulin sliding scale closely 5. Hypertension; as above DVT prophylaxis; SCDs CODE STATUS; full code Time with Patient: Greater than 30
[2018-05-06] MEDS: ONDANSETRON 4 MG/2 ML VIAL IVP PRN ×3 (01:46→14:17)
[2018-05-06] MEDS: KETOROLAC 30 MG/ML 1 ML VIAL IVP PRN ×3 (01:47→14:19)
[2018-05-06 06:47] LABS: Glucose,Whole Blood 120 mg/dL (75-99)
[2018-05-06] MEDS: PANTOPRAZOLE 40 MG/10 ML VIAL IVP SCH (08:15)
[2018-05-06] MEDS: LOSARTAN 50 MG TAB PO SCH (08:16)
[2018-05-06] MEDS ORDERED: BISACODYL 5 MG TABLET.DR PO PRN (08:21)
[2018-05-06] MEDS ORDERED: SODIUM CHLORIDE 0.9% 2,000 ML IV ONE (09:02)
[2018-05-06] MEDS ORDERED: LACTULOSE 20 GM/30 ML CUP PO ONE (09:05)
[2018-05-06] MEDS ORDERED: POLYETHYLENE GLYCOL 3350 17 GM POWD.PACK PO STA (09:10)
[2018-05-06] MEDS ORDERED: TAMSULOSIN 0.4 MG CAP.ER.24H PO STA (09:12)
[2018-05-06] MEDS ORDERED: DEXAMETHASONE SOD PHOSPHATE 10 MG/ML 1 ML VIAL IV STA (09:12)
[2018-05-06] MEDS ORDERED: SENNOSIDES-DOCUSATE SODIUM 1 EACH TAB PO SCH (09:15)
[2018-05-06] MEDS: INSULIN ASPART 100 UNIT/ML 1 ML 10 ML VIAL SQ SCH ×2 (09:47→12:54)
[2018-05-06] MEDS: SODIUM CHLORIDE 0.9% 1,000 ML IV SCH (09:48)
--- NOTE | 2018-05-06 10:26 | P.PN ---
Subjective Progress Note Date: 05/06/18 A 57-year-old female seen at the bedside with Dr. Burton. Dr. Burton did review the computed tomography scan of the abdomen pelvis with the patient. Report indicates 5 mm nonobstructive calculus in the lower pole of the right kidney left kidney unremarkable No acute inflammatory abnormality. Normal appendix. No free air. Patient has been seen by surgical service at the request of the attending for right upper abdominal pain with nausea vomiting. Patient points currently to the right flank areas to the discomfort. Patient states it's improved . Patient states she has not had a bowel movement in several days. Patient additionally reports a nausea sensation no active emesis. Currently is tolerating a clear liquid diet with is being advanced. Objective - Vital Signs Vital signs: Vital Signs Temp 97.5 F L 05/06/18 08:00 Pulse 80 05/06/18 08:00 Resp 16 05/06/18 08:00 BP 139/83 05/06/18 08:00 Pulse Ox 96 05/06/18 08:00 Intake & Output 05/05/18 05/06/18 05/06/18 18:59 06:59 18:59 Intake Total 1218 300 100 Balance 1218 300 100 Intake: Oral 1218 300 Other 100 Other: Voiding Method Toilet Toilet # Voids 1 1 - Exam Physical exam 57 year old female sitting up in bed appears in no acute distress. Lungs adequate air movement bilaterally on room air sats 96% Heart S1-S2 audible regular Abdomen soft obese nondistended nontender no facial grimacing well patient the abdominal wall urinating no difficulty reports a nausea sensation no active emesis no stool Extremities no edema - Labs CBC & Chem 7: 05/04/18 08:15 05/04/18 08:15 Labs: Abnormal Lab Results - Last 24 Hours (Table) 05/05/18 05/05/18 05/05/18 Range/Units 12:04 17:24 20:26 POC Glucose (mg/dL) 150 H 110 H 119 H (75-99) mg/dL 05/06/18 Range/Units 06:44 POC Glucose (mg/dL) 120 H (75-99) mg/dL Assessment and Plan Assessment: Impression Present on admission right upper quadrant pain likely due to 5 mm calculus nonobstructive right lower pole kidney Morbid obesity BMI 49 Present on admission intractable nausea vomiting suspect due to gastroenteritis Constipation Status post EGD January report indicate mild gastritis, esophageal reflux, 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 Dara Cleary nurse practitioner acting as scribe for signing physician.
[2018-05-06 12:10] LABS: Glucose,Whole Blood 191 mg/dL (75-99)
[2018-05-06 16:20] VITALS: BP 151/87; PULSE 94; RESP 18; TEMP 97.6
--- NOTE | 2018-05-06 16:27 | P.GSCN ---
History of Present Illness Consult date: 05/06/18 History of present illness: The patient is a 57-year-old female in the hospital with abdominal pain and nausea. The pain is on the right side. In actuality the pain has been going on many months. She has been previously evaluated including endoscopy of the gastrointestinal tract without obvious cause of her problem. She had a CAT scan which identified a 5 mm right lower pole calyceal stone. For this reason we are asked see the patient. The patient denies previous stones. She has had intermittent pain on the right side for several months if not longer. She has been told that she has "recurring infections" based on the fact that she's had blood in the urine. These were asymptomatic urine infections. He has had periodic severe colic by history. She has had no other urologic consultation in the past. The computed tomography scan is reviewed by myself identifying a 5 mm right lower pole calyceal stone without obstruction. Her urinary labs were normal. Her creatinine was normal. Review of Systems - Constitutional Reports anorexia, Reports chronic pain - Gastrointestinal Reports diarrhea, Reports nausea, Reports vomiting - Genitourinary Genitourinary: Reports as per HPI Past Medical History Past Medical History: Diabetes Mellitus, Hypertension, Pneumonia Additional Past Medical History / Comment(s): bronchitis,steroids December 2017, UTIs,fatty liver History of Any Multi-Drug Resistant Organisms: None Reported Past Surgical History: Bariatric Surgery, Cholecystectomy, Hernia Repair, Uterine Ablation Additional Past Surgical History / Comment(s): lap band,antonio inguinal hernia repair Past Anesthesia/Blood Transfusion Reactions: Previous Problems w/ Anesthesia, Postoperative Nausea & Vomiting (PONV) Additional Past Anesthesia/Blood Transfusion Reaction / Comm: hx stomach ache and headaches with anesthesia Past Psychological History: Anxiety, Depression Smoking Status: Never smoker Past Alcohol Use History: None Reported Past Drug Use History: None Reported - Past Family History Mother Family Medical History: No Reported History Medications and Allergies Home Medications Medication Instructions Recorded Confirmed Type Insulin Glargine,Hum.rec.anlog 70 unit SQ HS 02/12/18 05/03/18 History [Basaglar Kwikpen U-100] Insulin Lispro [humaLOG Kwikpen] 35 unit SQ TID-W/MEALS 02/12/18 05/03/18 History Losartan Potassium 50 mg PO QAM 02/12/18 05/03/18 History metFORMIN HCL [metFORMIN HCL ER] 1,000 mg PO BID 02/12/18 05/03/18 History Dulaglutide [Trulicity] 0.75 mg SQ SA 05/03/18 05/03/18 History Tamsulosin HCl [Flomax] 0.4 mg PO DAILY #30 capsule 05/06/18 Rx Allergies Allergy/AdvReac Type Severity Reaction Status Date / Time ciprofloxacin [From Cipro] Allergy Rash/Hives Verified 05/03/18 10:30 codeine Allergy throat Verified 05/03/18 10:30 swelling Iodinated Contrast- Oral and Allergy Unknown Verified 05/03/18 10:30 IV Dye latex Allergy Rash/Hives Verified 05/03/18 10:30 Penicillins Allergy Rash/Hives Verified 05/03/18 10:30 pain medications Allergy throat Uncoded 05/03/18 07:30 swelling Surgical - Exam Vital Signs Temp Pulse Resp BP Pulse Ox 97.7 F 99 20 175/103 99 05/03/18 07:28 05/03/18 07:28 05/03/18 07:28 05/03/18 07:28 05/03/18 07:28 - General well developed, well nourished, obese - Eyes PERRL - ENT no hearing loss - Neck trachea midline - Respiratory normal expansion, normal respiratory effort - Cardiovascular Rhythm: regular - Abdomen Abdomen: soft, non tender - Integumentary no rash - Neurologic normal coordination, normal sensation - Musculoskeletal normal posture - Psychiatric oriented to time, oriented to person, oriented to place, speech is normal, memory intact Results - Labs 05/04/18 08:15 05/04/18 08:15 Abnormal Lab Results - Last 24 Hours (Table) 05/05/18 05/05/18 05/06/18 Range/Units 17:24 20:26 06:44 POC Glucose (mg/dL) 110 H 119 H 120 H (75-99) mg/dL 05/06/18 Range/Units 12:07 POC Glucose (mg/dL) 191 H (75-99) mg/dL - Imaging CT scan - abdomen: report reviewed, image reviewed CT scan - pelvis: report reviewed, image reviewed Assessment and Plan Assessment: Impression: Right renal stone. Chronic right flank pain. Gastrointestinal symptoms, probably unrelated to kidney stone. Diabetes, obesity. Recommendations. It is very possible that this renal stone could give her intermittent renal colic. This could explain her right flank pain. This type of pain would be different than severe ureteral colic. I will obtain a KUB to see if the stone is visible so as to determine whether extracorporeal shockwave lithotripsy would be an appropriate treatment for this patient. If not ureteroscopic manipulation would be in order. Until the stone was removed I do not think we can truly clarify whether the right-sided abdominal pain is urologic or non-urologic in origin. After the KUB the patient may be discharged home from my standpoint I will follow up with her after review the KUB and make further determination as to how I want to treat this. This is been discussed and understood by the patient.
--- NOTE | 2018-05-06 17:56 | XR ---
EXAMINATION TYPE: XR KUB DATE OF EXAM: 05/06/2018 COMPARISON: NONE HISTORY: Abdominal pain TECHNIQUE: 2 views FINDINGS: There is no sign of intestinal obstruction or pneumoperitoneum. Fecal pattern is normal. Vani ng bases are clear. There are clips from cholecystectomy. IMPRESSION: Nonacute abdomen.
[2018-05-07] MEDS ORDERED: PANTOPRAZOLE 40 MG TABLET PO SCH (09:00)
== END 2018-05-06 17:57 | disposition home or self-care (01) ==
LOC: EC 07:24 → 3OBS 09:07
PROVIDERS: ADMIT Family Medicine; ATTEND Family Medicine
DX: R11.2 Nausea with vomiting, unspecified (principal); R10.31 Right lower quadrant pain; R19.7 Diarrhea, unspecified; E10.9 Type 1 diabetes mellitus without complications; I10 Essential (primary) hypertension; K76.0 Fatty (change of) liver, not elsewhere classified; K59.00 Constipation, unspecified; Z98.84 Bariatric surgery status; R63.0 Anorexia; G89.29 Other chronic pain; N20.0 Calculus of kidney; F41.9 Anxiety disorder, unspecified; F32.9 Major depressive disorder, single episode, unspecified; Z87.01 Personal history of pneumonia (recurrent); Z87.19 Personal history of other diseases of the digestive system; Z87.440 Personal history of urinary (tract) infections; Z90.49 Acquired absence of other specified parts of digestive tract; Z79.4 Long term (current) use of insulin; Z88.5 Allergy status to narcotic agent; Z88.0 Allergy status to penicillin; Z88.8 Allergy status to other drugs, medicaments and biological substances; Z88.1 Allergy status to other antibiotic agents; Z91.041 Radiographic dye allergy status; Z91.040 Latex allergy status; Z68.43 Body mass index [BMI] 50.0-59.9, adult; E66.01 Morbid (severe) obesity due to excess calories; Z79.84 Long term (current) use of oral hypoglycemic drugs; Z79.899 Other long term (current) drug therapy
CPT/HCPCS: 36415; 74018; 74176; 80048; 80053; 81001; 82150; 83036; 83690; 85025; 96361; 96374; 96375; 96376; 99285

== ENCOUNTER → 2018-05-08 | Outpatient (CLI) | payer OTHER ==
[2018-05-08 16:18] LABS: Basophils % (A) 1 %; Eosinophils # (A) 0.2 k/uL (0-0.7); Eosinophils % (A) 3 %; HCT 42.8 % (34.0-46.0); HGB 14.4 gm/dL (11.4-16.0); Lymphocytes # (A) 2.4 k/uL (1.0-4.8); Lymphocytes % (A) 37 %; MCH 27.4 pg (25.0-35.0); MCHC 33.6 g/dL (31.0-37.0); MCV 81.6 fL (80.0-100.0); Mean Platelet Volume 7.7; Monocytes # (A) 0.4 k/uL (0-1.0); Monocytes % (A) 5 %; Neutrophils # (A) 3.6 k/uL (1.3-7.7); Neutrophils % (A) 54 %; Platelet Count 158 k/uL (150-450); RBC 5.25 m/uL (3.80-5.40); RDW 13.8 % (11.5-15.5); WBC 6.7 k/uL (3.8-10.6)
[2018-05-08 16:36] LABS: Anion Gap 6 mmol/L; Blood Urea Nitrogen 13 mg/dL (7-17); Calcium 9.2 mg/dL (8.4-10.2); Carbon Dioxide 29 mmol/L (22-30); Chloride 107 mmol/L (98-107); Glucose 148 mg/dL (74-99); Potassium 4.8 mmol/L (3.5-5.1); Sodium 142 mmol/L (137-145)
[2018-05-08 16:39] LABS: Appearance,Urine Cloudy (Clear); Bacteria,Urine Moderate /hpf; Bilirubin,Urine Negative (Negative); Blood,Urine Negative (Negative); Color,Urine Yellow; Glucose,Urine (UA) Negative (Negative); Ketones,Urine Negative (Negative); Leukocyte Esterase,Urine Moderate (Negative); Mucus,Urine Few /hpf; Nitrite,Urine Negative (Negative); Protein,Urine Negative (Negative); RBC,Urine 9 /hpf (0-5); Specific Gravity,Urine 1.017 (1.001-1.035); Squamous Epithelial Cell,Urine 5 /hpf (0-4); Urobilinogen,Urine <2.0 mg/dL (<2.0); WBC,Urine 5 /hpf (0-5)
== END | disposition home or self-care (01) ==
LOC: LABPAT 15:37
PROVIDERS: ATTEND Urology
DX: Z01.812 Encounter for preprocedural laboratory examination (principal); R35.0 Frequency of micturition; R31.29 Other microscopic hematuria; N20.0 Calculus of kidney
CPT/HCPCS: 36415; 80048; 81001; 85025; 87086

== ENCOUNTER 2018-05-12 09:20 | Day surgery (SDC) | payer OTHER ==
[2018-05-09 10:41] VITALS: BMI 47.9
--- NOTE | 2018-05-11 18:18 | P.GSHP ---
History of Present Illness H&P Date: 05/11/18 See the surgical consultation from 05/06/2018. The kub didnt show the stone so therefore eswl cant be done. She comes for ureteroscopy and laser lithotripsy to a 5 mm right lower pole calyceal stone Past Medical History Past Medical History: Diabetes Mellitus, Hypertension Additional Past Medical History / Comment(s): bronchitis,UTIs,fatty liver, KIDNEY STONES History of Any Multi-Drug Resistant Organisms: None Reported Past Surgical History: Bariatric Surgery, Cholecystectomy, Hernia Repair, Uterine Ablation Additional Past Surgical History / Comment(s): lap band,antonio inguinal hernia repair Past Anesthesia/Blood Transfusion Reactions: Previous Problems w/ Anesthesia, Postoperative Nausea & Vomiting (PONV) Additional Past Anesthesia/Blood Transfusion Reaction / Comment(s): hx stomach ache and headaches with anesthesia Smoking Status: Never smoker - Past Family History Mother Family Medical History: No Reported History Medications and Allergies Home Medications Medication Instructions Recorded Confirmed Type Losartan Potassium 50 mg PO QAM 02/12/18 05/09/18 History metFORMIN HCL [metFORMIN HCL ER] 1,000 mg PO BID 02/12/18 05/09/18 History INSULIN LISPRO (humaLOG) [humaLOG] 0 units SQ DIRECTED 05/06/18 05/09/18 History Tamsulosin HCl [Flomax] 0.4 mg PO DAILY #30 capsule 05/06/18 05/09/18 Rx Insulin Glargine,Hum.rec.anlog 40 unit SQ HS 05/09/18 05/09/18 History [Basaglar Kwikpen U-100] Allergies Allergy/AdvReac Type Severity Reaction Status Date / Time ciprofloxacin [From Cipro] Allergy Rash/Hives Verified 05/09/18 10:34 codeine Allergy throat Verified 05/09/18 10:34 swelling Iodinated Contrast- Oral and Allergy Unknown Verified 05/09/18 10:34 IV Dye latex Allergy Rash/Hives Verified 05/09/18 10:34 Penicillins Allergy Rash/Hives Verified 05/09/18 10:34 pain medications Allergy throat Uncoded 05/09/18 10:34 swelling SEA FOOD Allergy THROAT Uncoded 05/09/18 10:34 GETS ITCHY
[~2018-05-12 09:20] MED LIST changes: +DEXAMETHASONE SOD PHOSPHATE 10 MG/ML 1 ML VIAL IV ONE; +Pre Op ABX Message 1 EACH MISC MISCELLANE ONE; +ceFAZolin 1,000 MG in DEXTROSE/WATER 1 50ML.BAG IVPB ONE
--- NOTE | 2018-05-12 09:49 | XR ---
Abdomen HISTORY: Preop lithotripsy, kidney stones Frontal view of the abdomen on 2 images correlated to prior abdomen 05/06/2018, CT abdomen pelvis 05/03 Postsurgical changes are again noted, surgical clips present in the pelvis with an interval clip note d in the right hemipelvis and right upper quadrant clips status post cholecystectomy, patient is post lap band. No evident pneumoperitoneum or bowel obstruction. Scattered calcifications are present wit hin the pelvis. Patient's right renal calcification is not well seen on plain film likely due to adeline ent body habitus and small renal calcification size. IMPRESSION: Interval change in surgical clip, additional findings above.
[2018-05-12 10:45] VITALS: RESP 16
[2018-05-12] MEDS ORDERED: LIDOCAINE 1% 20 ML VIAL (10MG/ML) FOR IV START INTRADERMA ONE (11:05)
[2018-05-12 11:07] LABS: Glucose,Whole Blood 165 mg/dL (75-99)
[2018-05-12] MEDS: ONDANSETRON 4 MG/2 ML VIAL IVP ONE ×2 (11:08→13:01)
[2018-05-12] MEDS ORDERED: KETOROLAC 30 MG/ML 1 ML VIAL ONE (11:31)
[2018-05-12] MEDS ORDERED: MIDAZOLAM 2 MG/2 ML VIAL ONE (11:31)
[2018-05-12] MEDS ORDERED: PROPOFOL 10 MG/ML 20 ML VIAL IV ONE (11:31)
[2018-05-12] MEDS ORDERED: fentaNYL (PF) 50 MCG/ML 2 ML AMP ONE (11:31)
[2018-05-12] MEDS ORDERED: LIDOCAINE 1% INJ 10MG/ML (20 ML MDV) ONE (11:31)
[2018-05-12] MEDS ORDERED: SUCCINYLCHOLINE CHLORIDE 100 MG/5 ML SYR IV ONE (11:31)
[2018-05-12] MEDS ORDERED: IOPAMIDOL-370 50ML BTL MISCELLANE ONE (12:01)
--- NOTE | 2018-05-12 12:25 | P.OP ---
Date of Procedure: 05/12/18 Preoperative Diagnosis: Right renal stone Postoperative Diagnosis: Same Procedure(s) Performed: Cystoscopy, right ureteroscopy, right laser lithotripsy to renal stone, stone basketing, placement of 624 stent Anesthesia: NICOLE Surgeon: Mayank Morales Estimated Blood Loss (ml): 0 Pathology: other (Stone) Condition: stable Disposition: PACU Indications for Procedure: The patient is 57. She has a 4-5 mm right upper pole stone. Is symptomatically bothering her. I cannot see it on KUB. She comes for right ureteroscopy with laser lithotripsy Description of Procedure: The patient is brought to the operating suite. She is given a general endotracheal anesthesia. She's placed lithotomy position with sterile prep and drape. Cystoscopy Foroblique lens and 22-Cambodian sheath identifies a normal urethra. Normal ureteral orifice these. Normal bladder mucosa. The right ureteral orifice is intubated with an 035 wire. Over the wires passed 11-13- Cambodian reentry sheath. I removed the inner sheath. I passed the flexible ureteroscope up into the collecting system and I eventually finding the stone in an upper pole medial calyx.. With the 200 probe and 3 W of energy the stone was broken into tiny pieces. The largest pieces grasped and removed with a stone basket. Through this reentry sheath I pass an 035 wire. Over the wire is passed a 6 x 24 double-J stent that coils in the renal pelvis and in the bladder. the bladder is drained, the patient's awakened and returned recovery room in good condition blood loss is minimal. SHe'll be discharged home upon recovery and follow in the office in one week for stent removal
[2018-05-12] MEDS ORDERED: SCOPOLAMINE 1.5MG/72HR PATCH TRANSDERM ONE (12:44)
[2018-05-12] MEDS: fentaNYL (PF) 50 MCG/ML 2 ML AMP IV PRN ×4 (13:00→13:16)
[2018-05-12 13:04] VITALS: TEMP 97.2
[2018-05-12] MEDS ORDERED: PROMETHAZINE INJ 25 MG/ML 1 ML VIAL IVPB ONE (13:16)
[2018-05-12 13:26] LABS: Glucose,Whole Blood 186 mg/dL (75-99)
[2018-05-12] MEDS ORDERED: METOCLOPRAMIDE 5 MG/ML 2 ML VIAL IVP ONE (13:28)
--- NOTE | 2018-05-12 13:40 | FL ---
Fluoroscopy HISTORY: Right kidney stones with stent insertion 2.02 minutes fluoroscopy time supplied to the referring clinician. 5 intraoperative C-arm images doc ument the procedure. See dictated report from urology.
[2018-05-12] MEDS ORDERED: BELLADONNA-OPIUM 16.2-60 MG 1 EACH SUPP RECTAL STA (13:49)
[2018-05-12 15:13] VITALS: BP 142/82; PULSE 99
[2018-05-12 15:19] LABS: Glucose,Whole Blood 196 mg/dL (75-99)
[2018-05-12] MEDS ORDERED: HYDROcodone/APAP 5-325MG 1 EACH TAB PO ONE (15:23)
== END 2018-05-12 16:20 | disposition home or self-care (01) ==
LOC: OR 09:20
PROVIDERS: ATTEND Urology
DX: N20.0 Calculus of kidney (principal); E11.9 Type 2 diabetes mellitus without complications; I10 Essential (primary) hypertension; F32.9 Major depressive disorder, single episode, unspecified; F41.9 Anxiety disorder, unspecified; Z90.49 Acquired absence of other specified parts of digestive tract; Z87.440 Personal history of urinary (tract) infections; Z87.442 Personal history of urinary calculi; Z79.4 Long term (current) use of insulin; Z79.899 Other long term (current) drug therapy; Z88.5 Allergy status to narcotic agent; Z88.1 Allergy status to other antibiotic agents; Z88.0 Allergy status to penicillin; Z91.041 Radiographic dye allergy status; Z91.040 Latex allergy status; Z91.013 Allergy to seafood
CPT/HCPCS: 82365; 74420; 74018; 52356; C2625; C1769; J2250; J1100; J2550; J2765; J2405; J2001; J3010; J1885; J0690; J0330; J2704; Q9967

== ENCOUNTER → 2018-08-06 | Outpatient (CLI) | payer OTHER ==
--- NOTE | 2018-08-08 11:42 | MM ---
Reason for exam: screening (asymptomatic). Physical Findings: A clinical breast exam by your physician is recommended on an annual basis and results should be correlated with mammographic findings. MG Screening Mammo w CAD Bilateral CC and MLO view(s) were taken. No prior studies available for comparison. There are scattered fibroglandular densities. There are benign appearing round calcifications in the left breast. There is no discrete abnormality. Benign bilateral axillary lymph nodes. ASSESSMENT: Benign, BI-RAD 2 RECOMMENDATION: Routine screening mammogram of both breasts in 1 year.
== END | disposition home or self-care (01) ==
LOC: RADMAMWWP 13:44
PROVIDERS: ATTEND Obstetrics & Gynecology
DX: Z12.31 Encounter for screening mammogram for malignant neoplasm of breast (principal)
CPT/HCPCS: 77067

== ENCOUNTER → 2021-01-09 | Outpatient (CLI) | payer BC ==
--- NOTE | 2021-01-09 12:19 | XR ---
EXAMINATION TYPE: XR chest 2V DATE OF EXAM: 01/09/2021 COMPARISON: Chest x-ray 12/27/2017 HISTORY: R06.00 TECHNIQUE: Frontal and lateral views of the chest are obtained. FINDINGS: There is no focal air space opacity, pleural effusion, or pneumothorax seen. The cardiac silhouette size is within normal limits. The osseous structures are intact, there is a spinal curva ture, thoracic spondylosis is noted. There is a lap band in place. Surgical clips present in the uppe r abdomen. Right hemidiaphragm is mildly elevated. IMPRESSION: No acute cardiopulmonary process.
== END | disposition home or self-care (01) ==
LOC: RADXRMAIN 09:50
PROVIDERS: ATTEND Family Medicine
DX: R06.00 Dyspnea, unspecified (principal)
CPT/HCPCS: 71046

== ENCOUNTER → 2021-01-27 | Outpatient (CLI) | payer BC ==
--- NOTE | 2021-01-29 11:00 | ECHOF ---
Referral Reason:R06.00 Dypsnea, unspecified MEASUREMENTS -------- HEIGHT: 154.9 cm WEIGHT: 110.2 kg BP: 166/90 RVIDd: 3.1 cm (< 3.3) IVSd: 1.4 cm (0.6 - 1.1) LVIDd: 3.7 cm (3.9 - 5.3) LVPWd: 1.4 cm (0.6 - 1.1) IVSs: 2.0 cm LVIDs: 2.4 cm LVPWs: 1.7 cm LA Diam: 3.6 cm (2.7 - 3.8) Ao Diam: 3.0 cm (2.0 - 3.7) MV EXCURSION: 12.907 mm (> 18.000) MV EF SLOPE: 139 mm/s (70 - 150) EPSS: 0.3 cm MV E Bhargav: 0.48 m/s MV DecT: 187 ms MV A Bhargav: 0.62 m/s MV E/A Ratio: 0.78 FINDINGS -------- Sinus rhythm. This was a technically difficult study with suboptimal views. The left ventricular size is normal. There is moderate concentric left ventricular hypertrophy. O verall left ventricular systolic function is normal with, an EF between 60 - 65 %. The right ventricle is normal in size. The left atrium is normal in size. The right atrium is normal in size. 5.0mg of Lumason was utilized for enhancement of images Interatrial and interventricular septum intact. The aortic valve was not well visualized. The mitral valve is normal. The tricuspid valve appears structurally normal. Unable to estimate RVSP due to inadequate TR jet s pectral doppler profile. Trace/mild (physiologic) pulmonic regurgitation. The aortic root size is normal. IVC Not well visulized. There is no pericardial effusion. CONCLUSIONS -------- 1. The left ventricular size is normal. 2. There is moderate concentric left ventricular hypertrophy. 3. Overall left ventricular systolic function is normal with, an EF between 60 - 65 %. 4. 5.0mg of Lumason was utilized for enhancement of images 5. Unable to estimate RVSP due to inadequate TR jet spectral doppler profile. 6. Trace/mild (physiologic) pulmonic regurgitation. 7. There is no pericardial effusion. CLOTH COLORER: Idalia Pisano [facility]
== END | disposition home or self-care (01) ==
LOC: RADECHMAIN 16:18
PROVIDERS: ATTEND Family Medicine
DX: I37.1 Nonrheumatic pulmonary valve insufficiency (principal); I51.7 Cardiomegaly
CPT/HCPCS: 93306; Q9950